=== PATIENT | female | born 1965 | race Caucasian/White ===

== ENCOUNTER 2016-12-18 08:43 | Emergency (ER) | payer MEDICAID, OTHER ==
[2016-12-18 08:51] VITALS: BP 145/99; PULSE 83; RESP 18; TEMP 98.2; O2SAT 98; BMI 25.6
--- NOTE | 2016-12-18 09:18 | C.PDOC ---
History Of Present Illness 51 year old patient presents to the ED complaining of nasal congestion and runny nose since yesterday. Patient also complains of a non-productive, dry cough. She reports she suffers from season allergies. She occasionally takes Benadryl with minimal effect. Patient denies any fever, vomiting, diarrhea, shortness of breath, or any other complaints at this time. Time Seen by Provider: 12/18/16 09:13 Chief Complaint (Nursing): Cough, Cold, Congestion History Per: Patient History/Exam Limitations: no limitations Onset/Duration Of Symptoms: Days (1) Current Symptoms Are (Timing): Still Present Location Of Pain: Throat Sick Contacts (Context): None Associated Symptoms: Sore Throat, Cough, Nasal Congestion Ear Symptoms: Bilateral: None Severity: Mild Pain Scale Rating Of: 3 Recent travel outside of the [place]: No Past Medical History Reviewed: Historical Data, Nursing Documentation, Vital Signs Vital Signs: Last Vital Signs Temp 98.2 F 12/18/16 08:50 Pulse 83 12/18/16 08:50 Resp 18 12/18/16 08:50 BP 145/99 H 12/18/16 08:50 Pulse Ox 98 12/18/16 10:27 - Medical History PMH: Kidney Stones Surgical History: Cholecystectomy Family History: States: Unknown Family Hx - Social History Hx Tobacco Use: No Hx Alcohol Use: No Hx Substance Use: No - Immunization History Hx Tetanus Toxoid Vaccination: Yes Hx Influenza Vaccination: Yes Hx Pneumococcal Vaccination: Yes Review Of Systems Except As Marked, All Systems Reviewed And Found Negative. Constitutional: Negative for: Fever ENT: Positive for: Nose Discharge, Throat Pain Respiratory: Positive for: Cough. Negative for: Shortness of Breath Gastrointestinal: Negative for: Vomiting, Diarrhea Physical Exam - Physical Exam Appears: Non-toxic, No Acute Distress Skin: Warm, Dry Head: Atraumatic, Normacephalic Eye(s): bilateral: Normal Inspection, EOMI Ear(s): Bilateral: Normal Nose: Normal Oral Mucosa: Moist Throat: Erythema, No Exudate Cardiovascular: Rhythm Regular Respiratory: Normal Breath Sounds, No Rales, No Rhonchi, No Wheezing Neurological/Psych: Oriented x3, Normal Speech, Normal Cognition Gait: Steady ED Course And Treatment O2 Sat by Pulse Oximetry: 98 (RA) Pulse Ox Interpretation: Normal Medical Decision Making Medical Decision Making: nasal erythema, seasonal allergy symptoms poorly controlled with occasional Benadryl OTC seasonal allergy meds educated. Disposition Doctor Will See Patient In The: Office Counseled Patient/Family Regarding: Studies Performed, Diagnosis - Disposition Referrals: [facility] [Outside] Disposition: HOME/ ROUTINE Disposition Time: 09:18 Condition: GOOD Additional Instructions: Kristin Najma-D o' algo parecido para las allergias de la temporada. Sigue en [facility]. Instructions: Allergic Rhinitis (ED) Print Language: WALLISIAN - Clinical Impression Clinical Impression: Seasonal allergic rhinitis - Scribe Statement The provider has reviewed the documentation as recorded by the Scribe Danielle Mendoza Provider Attestation: All medical record entries made by the Scribe were at my direction and personally dictated by me. I have reviewed the chart and agree that the record accurately reflects my personal performance of the history, physical exam, medical decision making, and the department course for this patient. I have also personally directed, reviewed, and agree with the discharge instructions and disposition.
== END 2016-12-18 10:03 | disposition home or self-care (01) ==
LOC: C.ER 08:43
DX: J30.2 Other seasonal allergic rhinitis (principal)